=== PATIENT | female | born 2000 ===

== ENCOUNTER 2019-02-27 17:04 | Emergency (ER) | payer OTHER ==
[~2019-02-27] VITALS: Ht 167.6 cm; Wt 64.9 kg
[~2019-02-27 17:04] MED LIST: VOLTAREN-XR100 MG PO
== END 2019-02-27 22:46 | disposition home or self-care (01) ==
LOC: ER 17:04
DX: J11.1 Influenza due to unidentified influenza virus with other respiratory manifestations (principal)